=== PATIENT | male | born 1945 | race Caucasian/White ===

== ENCOUNTER 2020-05-06 21:13 | Emergency (ER) | payer MEDICARE, OTHER ==
[2020-05-06] MEDS ORDERED: Sodium Chloride 0.9% 100 ML BAG IVPB ONE (21:14)
[2020-05-06] MEDS ORDERED: Iopamidol 370 76% 125 ML VIAL FS ONE (21:14)
[2020-05-06 22:41] LABS: Band 21 % (5-11); Hemoglobin 14.7 g/dL (14.0-18.0); Lymphocytes 28 % (21-51); MDiff Complete? YES; Mean Corpuscular HGB CONC 31.5 g/dL (32.0-36.0); Mean Corpuscular Hemoglobin 28.6 pg (27.0-31.0); Mean Corpuscular Volume 90.8 fL (78.0-98.0); Mean Platelet Volume 8.9 fL (7.4-10.4); Monocytes 8 % (0-10); Neutrophil 43 % (42-75); Platelet Count 185 thou/uL (130-400); RBC Distribution Width 12.8 % (11.5-14.5); Red Blood Cell (RBC) Count 5.13 mill/uL (4.70-6.10); White Blood Cell (WBC) Count 10.7 thou/uL (4.8-10.8)
[2020-05-06 22:49] LABS: ALT (SGPT) 41 U/L (8-55); AST (SGOT) 42 U/L (5-34); Albumin 3.9 g/dL (3.4-4.8); Alkaline Phosphatase 86 U/L (40-110); Anion Gap 19 mmol/L (10-20); BUN (Urea Nitrogen) 23 mg/dL (8.4-25.7); Bilirubin, Total 1.2 mg/dL (0.2-1.2); Calc. Creatinine Clearance 0 mL/min (70-130); Calcium 8.9 mg/dL (7.8-10.44); Carbon Dioxide 23 mmol/L (23-31); Chloride 96 mmol/L (98-107); Estimated GFR-MDRD 64; Globulin 3.8 g/dL (2.4-3.5); Glucose 117 mg/dL (83-110); Potassium 3.9 mmol/L (3.5-5.1); Protein, Total 7.7 g/dL (5.8-8.1); Sodium 134 mmol/L (136-145)
[2020-05-06 23:04] LABS: CKMB 1.5 ng/mL (0-6.6)
[2020-05-06] MEDS ORDERED: Aspirin 325 MG TAB ONE (23:04)
--- NOTE | 2020-05-07 00:03 | CT ---
CTA Angio Chest W WO Con History: Dyspnea fever and chills Comparison: None. Findings: CT angiogram of the chest performed after the intravenous administration of contrast. 3-D r endering provided. No proximal segmental pulmonary arterial filling defect. Extensive motion artifact. Heart size mildly enlarged. Small paratracheal lymph nodes. Limited evaluation of the upper abdomen is relatively unremarkable. Mild atelectasis within the lung bases. Subtle focus of consolidation anterior segment left upper lob e. Sternum and manubrium are intact. Thoracic spine is intact. No acute displaced rib fracture. Impression: 1. No pulmonary embolism. 2. Subtle focus of consolidation anterior segment left upper lobe suggesting pneumonia.. 3. Mild cardiomegaly.
[2020-05-07] MEDS ORDERED: cefTRIAXone\\ROCEPHIN 1 GM VIAL ONE (00:09)
[2020-05-07] MEDS ORDERED: Sodium Chloride 0.9% 100 ML ONE (00:09)
[2020-05-07] MEDS ORDERED: Sodium Chloride 0.9% 250 ML 250 ML ONE (00:09)
[2020-05-07] MEDS ORDERED: Acetaminophen 500 MG TAB ONE (00:09)
[2020-05-07] MEDS ORDERED: Azithromycin 500 MG VIAL ONE (00:09)
[2020-05-07 01:36] LABS: Bilirubin Negative (Negative); Blood, Urine Negative (Negative); Clarity Clear (Clear); Glucose, Urine (Dipstick) Negative (Negative); Leukocyte Negative (Negative); Nitrite Negative (Negative); Protein, Urine (Dipstick) Negative (Neg-Trace); Urobilinogen 0.2 mg/dL (Less than 2)
== END 2020-05-07 01:00 | disposition short-term general hospital (02) ==
LOC: MADERS 21:13
DX: J18.9 Pneumonia, unspecified organism (principal); I10 Essential (primary) hypertension; Z79.899 Other long term (current) drug therapy
CPT/HCPCS: 71275; 80053; 81003; 82553; 83605; 83880; 84484; 85025; 87040; 93005; 94760; 96365; 96375; J0456; J0696; J3490; J7050; Q9967